=== PATIENT | male | born 1970 | race Caucasian/White ===

== ENCOUNTER 2025-02-01 21:17 | Emergency (ER) | payer OTHER ==
[~2025-02-01] VITALS: Ht 182.9 cm; Wt 106.6 kg
[2025-02-01 23:02] LABS: BASOPHILS ABSOLUTE AUTO 0.07 K/mm3 (0.00-0.23); BASOPHILS PERCENT AUTO 1 % (0-2); EOSINOPHILS ABSOLUTE AUTO 0.37 K/mm3 (0.00-0.68); EOSINOPHILS PERCENT AUTO 3 % (0-6); Hematocrit 44.8 % (37.0-53.0); Hemoglobin 15.0 g/dL (13.5-17.5); IMMATURE GRAN ABSOLUTE AUTO 0.04 K/mm3 (0.00-0.10); IMMATURE GRAN PERCENT AUTO 0 % (0-1); LYMPHOCYTES ABSOLUTE AUTO 2.37 K/mm3 (0.84-5.20); LYMPHOCYTES PERCENT AUTO 16 % (21-46); MONOCYTES ABSOLUTE AUTO 0.63 K/mm3 (0.16-1.47); MONOCYTES PERCENT AUTO 4 % (4-13); Mean Corpuscular HGB Conc 33.5 g/dL (31.5-36.5); Mean Corpuscular Volume 95 fL (80-100); NEUTROPHILS ABSOLUTE AUTO 11.16 K/mm3 (1.96-9.15); NEUTROPHILS PERCENT AUTO 76 % (41-73); NRBC ABSOLUTE 0.00 K/mm3 (0.00-0.02); NRBC Auto 0.0 /100 WBC (0.0-0.2); Platelet Count 257 K/mm3 (150-400); RDW Coefficient Variation 13.2 % (11.7-14.2); RDW Standard Deviation 46.6 fL (35.1-46.3)
[2025-02-01 23:23] LABS: Alanine Aminotransfer (ALT/SGP 29.0 U/L (12-78); Albumin, Blood 4.1 g/dL (3.4-5.0); Albumin/Globulin Ratio 1.2 (0.8-1.8); Anion Gap 7.0 mmol/L (3-11); Aspartate Aminotrans (AST/SGOT 28.0 U/L (12-37); Bilirubin, Total 0.2 mg/dL (0.1-1.0); Blood Urea Nitrogen 11.0 mg/dL (8-24); CO2, Blood 28.0 mmol/L (21-32); Calcium, Blood 8.1 mg/dL (8.5-10.1); Chloride, Blood 105.0 mmol/L (98-108); Creatinine, Blood 1.17 mg/dL (0.60-1.20); Globulin, Blood 3.3 g/dL (2.2-4.0); Glucose, Blood 116.0 mg/dL (70-99); Potassium, Blood 4.3 mmol/L (3.5-5.5); Sodium, Blood 136.0 mmol/L (136-145); Total Protein, Blood 7.4 g/dL (6.4-8.2)
[2025-02-01] MEDS ORDERED: Morphine Sulfate 4 MG/1 ML Injection IV ONE (23:40)
[2025-02-02] MEDS ORDERED: HYDR1TAB94 PO (00:26)
[2025-02-02] MEDS ORDERED: RX Prepack 6 Tabs Oxycodone 5mg UD ONE (00:30)
[2025-02-02 01:15] VITALS: BP 133/78
== END 2025-02-02 01:43 | disposition home or self-care (01) ==
LOC: ER 21:17
PROVIDERS: Student in an Organized Health Care Education/Training Program
DX: S76.191A Other specified injury of right quadriceps muscle, fascia and tendon, initial encounter (principal); W50.0XXA Accidental hit or strike by another person, initial encounter; Y93.72 Activity, wrestling
CPT/HCPCS: 73562-RT; 80053; 85025; 96374; 99283-25; A9270; J2270

== ENCOUNTER 2025-02-10 07:15 | Day surgery (SDC) | payer OTHER ==
[~2025-02-10] VITALS: Ht 182.9 cm; Wt 107.5 kg
[2025-02-10] VITALS (22 sets, daily range): BP systolic 130–151; BP diastolic 76–99
[~2025-02-10 07:15] MED LIST: HYDR1TAB94 PO
[2025-02-10] MEDS ORDERED: Bupivacaine 0.5% W/EPI 1:200000 SDV 30 ML Vial ONE (07:22)
[2025-02-10] MEDS ORDERED: Ropivacaine 0.5% HCL/PF 5 MG/ML 30ML Vial ONE ×2 (08:01→11:27)
[2025-02-10] MEDS ORDERED: FentaNYL Citrate 50 MCG/ML 2 ML Injection ONE ×4 (08:05→10:04)
[2025-02-10] MEDS ORDERED: Ketorolac Tromethamine 30mg Vial ONE (08:11)
[2025-02-10] MEDS ORDERED: Ondansetron HCl 2 MG / ML 2ML Vial ONE (08:11)
[2025-02-10] MEDS ORDERED: Dexamethasone Sod Phos 10 MG/ML 1ML VIAL ONE (08:11)
[2025-02-10] MEDS ORDERED: CeFAZolin Sodium 1000 mg Vial ONE (08:21)
[2025-02-10] MEDS ORDERED: FentaNYL Citrate 50 MCG/ML 2 ML Injection IV PRN ×2 (08:40)
[2025-02-10] MEDS ORDERED: HYDROmorphone HCl/Pf 1MG SYR IV PRN (08:40)
[2025-02-10] MEDS ORDERED: Metoclopramide HCl 5MG / ML 2ML Vial IV PRN (08:50)
[2025-02-10] MEDS ORDERED: Ondansetron HCl 2 MG / ML 2ML Vial IV PRN (08:50)
[2025-02-10] MEDS ORDERED: Albuterol 2.5 MG/3 ML VIAL INH PRN (08:50)
[2025-02-10] MEDS ORDERED: Prochlorperazine Edisylate 10 mg Vial IV PRN (08:50)
[2025-02-10] MEDS ORDERED: HYDROmorphone HCl/Pf 1MG SYR ONE ×2 (09:26→09:44)
--- NOTE | 2025-02-10 11:51 | NUR ---
NERVE BLOCK NOTENERVE BLOCK PERFORMED BY TEETEE MARTINEZ AT 1135. TIME OUT DONE PRIOR. PT FULLY AWAKE DURING PROCEDURE.
--- NOTE | 2025-02-10 13:19 | NUR ---
DISCHARGE NOTE PT A&OX4, BREATHING RA, VSS. PT STATES HE IS "VIRTUALLY PAIN-FREE" AFTER NERVE BLOCK. PT ABLE TO WIGGLE TOES TO OPERATIVE LEG, TOES ARE PWD C BRISK CAP REFILL. IMMOBILIZER AND PAULINO WRAP IN PLACE. ICE PACK PROVIDED. SO AT BEDSIDE. Discharge instructions reviewed with patient. Patient verbalizes understanding. Copy given to patient to take home. Dressing to procedure site clean, dry, intact with no visible drainage, swelling, erythema or bruising noted. Discharged via wheelchair to private car for ride home.
== END 2025-02-10 12:20 | disposition home or self-care (01) ==
LOC: ORSCMMR 07:15 → ORD 08:30 → ORSCMMR 08:30
PROVIDERS: Orthopaedic Surgery
PROC: 0LQQ0ZZ Repair Right Knee Tendon, Open Approach (ICD-10-PCS; principal; 2025-02-10 07:30)
DX: S86.811A Strain of other muscle(s) and tendon(s) at lower leg level, right leg, initial encounter (principal); E66.9 Obesity, unspecified; Z68.32 Body mass index [BMI] 32.0-32.9, adult; X50.9XXA Other and unspecified overexertion or strenuous movements or postures, initial encounter
CPT/HCPCS: C1713; J0690; J1100; J1171; J1885; J2405; J2704; J2795; J3010; J7120